=== PATIENT | female | born 1965 | race Caucasian/White ===

== ENCOUNTER 2017-05-29 12:32 | Emergency (ER) | payer OTHER ==
--- NOTE | 2017-05-29 14:36 | ED Physician Chart ---
ED Chief Complaint/HPI - Patient Information Date Seen:: 05/29/17 Time Seen:: 12:45 Chief Complaint:: Headaches History of Present Illness:: onset x 3 days of intermittent, diffuse, dull Headaches radiating to the right orbital, facial, and neck regions; pt denies trauma, LOC, ALOC, AMS, N/V, decreased activity, visual or gait changes, paresthesias, weakness, dizziness, cough, S/T, E/As, eye pain,eye redness, vertigo, neck pain, C/P, SOB, Abd. Pain , A/N/V/D/C, fever, chills, jaw claudication, or urinary s/s; pt is eating and urinating well; pt last urinated one hour [facility]; LNMP: 05/26/17; pt denies Allergies:: Allergies Allergy/AdvReac Type Severity Reaction Status Date / Time No Known Allergies Allergy Verified 05/29/17 12:45 Vitals:: Vital Signs - 8 hr 05/29/17 12:46 Temp 98 F HR 72 RR 16 BP 121/66 O2 Sat % 100 Historian:: Patient Review:: Nurse's Note Reviewed ED Review of Systems - Review of Systems General/Constitutional: No fever, No chills, No weight loss, No weakness, No diaphoresis, No edema, No loss of appetite Skin: No skin lesions, No rash, No bruising Head: Headache, No light-headedness Eyes: No loss of vision, No pain, No diplopia ENT: No earache, No nasal drainage, No sore throat, No tinnitus Neck: No neck pain, No swelling, No thyromegaly, No stiffness, No mass noted Cardio Vascular: No chest pain, No palpitations, No PND, No orthopnea, No edema Pulmonary: No SOB, No cough, No sputum, No wheezing GI: No nausea, No vomiting, No diarrhea, No pain, No melena, No hematochezia, No constipation, No hematemesis G/U: No dysuria, No frequency, No hematuria, No nacturia Front Office Administrator: No vaginal discharge, No abnormal vaginal bleed, No contraction Musculoskeletal: No bone or joint pain, No back pain, No muscle pain Endocrine: No polyuria, No polydipsia Psychiatric: No prior psych history, No depression, No anxiety, No suicidal ideation, No homicidal ideation, No auditory hallucination, No visual hallucination Hematopoietic: No bruising, No lymphadenopathy Allergic/Immuno: No urticaria, No angioedema Neurological: No syncope, No focal symptoms, No weakness, No paresthesia, No headache, No seizure, No dizziness, No confusion, No vertigo ED Past Medical History - Past Medical History Obtainable: Yes Past Medical History: No significant medical hx Family History: HTN Social History: Non Smoker, No Alcohol, No Drug Use, Surgical History: None Psychiatricy History: None Medication: Reviewed ED Physical Exam - Physical Examination General/Constitutional: Awake, Well-developed, well-nourished, Alert, No distress, GCS 15, Non-toxic appearing, Ambulatory Head: Atraumatic Eyes: Lids, conjuctiva normal, PERRL, EOMI Other Eyes comments:: Va: 20/20 OU; PERRLA; Fundi: benign; EOMs: WNL; LLL: WNL; Eye Exam: WNL; Corneas /Conjunctiva: WNL; no FBs Skin: Nl inspection, No rash, No skin lesions, No ecchymosis, Well hydrated, No lymphadenopathy ENMT: External ears, nose nl, TM canals nl, Nasal exam nl, Lips, teeth, gums nl , Oropharynx nl, Tonsils nl Other ENMT comments:: TMJs: WNL Neck: Nontender, Full ROM w/o pain, No JVD, No nuchal rigidity, No bruit, No mass, No stridor Other Neck comments:: Supple; no meningeal signs; no cervical tenderness; no bruits Respiratory: Nl effort/Exclusion, Clear to Auscultation, No Wheeze/Rhonchi/Rales Cardio Vascular: RRR, No murmur, gallop, rubs, NL S1 S2, Carotid/Femoral/Distal pulses equal bilaterally GI: No tenderness/rebounding/guarding, No organomegaly, No hernia, Normal BS's, Nondistended, No mass/bruits, No McBurney tenderness Other GI comments:: no pulsatile masses : No CVA tenderness Extremities: No tenderness or effusion, Full ROM, normal strength in all extremities, No edema, Normal digits & nails Neuro/Psych: Alert/oriented, DTR's symmetric, Normal sensory exam, Normal motor strength, Judgement/insight normal, Mood normal, Normal gait, No focal deficits Misc: Normal back, No paraspinal tenderness ED Labs/Radiology/EKG Results - Lab Results Results: Laboratory Tests 05/29/17 13:10 Urine Test NEGATIVE Comments:: UCG: Negative - Radiology Results Comments:: DJD Changes; NAD ED Septic Shock - . Is Septic Shock (SBP<90, OR Lactate>4 mmol\L) present?: No - <6hrs of presentation: Vital Signs: Vital Signs - 8 hr 05/29/17 12:46 Temp 98 F HR 72 RR 16 BP 121/66 O2 Sat % 100 ED Reassessment (Disposition) - Reassessment Reassessment:: pt is aymptomatic upon discharge Reassessment Condition:: Improved - Diagnosis Diagnosis:: Osteoarthritis; Headaches; Ocular Cephalgia; TMJ Syndrome; Cervical Strain; Radiculopathy; Vascular Cephalgia - Aftercare/Follow up Instructions Aftercare/Follow-Up Instructions:: Counseled pt regarding lab results/diagnosis & need follow up, Refer to Discharge Instructions, Counseled pt & family regarding lab results/diagnosis & need follow up - Patient Disposition Discharge/Transfer:: Home Condition at Disposition:: Stable, Improved (RTER prn if existing s/s reoccur and/or get worse and/or any other new s/s occur; X-Rays Instructions; ACIs given for all above Dx; Refer to Neurologist/Documentum Consultant/Catshovel Driver/ENT Specialist ALINA; F/U with PMD in one day or prn; RTER prn if concerned)
--- NOTE | 2017-05-30 08:27 | Diagnostic Imaging Report ---
Exam: CT examination of facial bones HISTORY: Facial pain. Total DLP equals 523 CTDI equals 24.6 Findings: Multiple contiguous thin section of facial bones were obtained without administration of contrast which he of. The study was performed in axial plane with coronal sagittal reconstruction technique. The study demonstrates no evidence of fracture dislocation. The visualized paranasal sinuses are well aerated. The orbits and intraconal content is intact. The zygomatic arches are normal. The maxillary mandible intact. IMPRESSION: Normal examination of the facial bones.
--- NOTE | 2017-05-30 08:28 | Diagnostic Imaging Report ---
CT scan of the brain without contrast History: Headache Total DLP equals 452 CTDI equals 19.4 Axial sections were obtained from the base of the skull to the vertex. There is a normal ventricular system size. No focal parenchymal lesions are seen. No evidence of any mass effect or shift of midline structures. No extra-axial masses or abnormal fluid collections. Impression: Negative examination.
--- NOTE | 2017-05-30 08:31 | Diagnostic Imaging Report ---
CT scan cervical spine History: Pain. Total DLP equals 452 CTDI equals 19.4 Axial sections were obtained through the cervical spine region. Additional sagittal and coronal reformatted images are provided. No focal bony lesions are seen. Specifically, no fractures are identified. There is limited visualization of the margins of the cervical spinal cord. No obvious extradural soft tissue abnormalities are seen. The prevertebral soft tissues appear normal. Mild degenerative changes of the C4, C5-C6 and C7 appreciated. Mild osteophytic spurring is noted in the C 6 C7 vertebral bodies anteriorly. If clinically indicated MRI examination might be helpful Impression: No acute abnormalities Mild degenerative changes.
== END 2017-05-29 16:03 | disposition home or self-care (01) ==
LOC: ER 12:32
DX: G44.1 Vascular headache, not elsewhere classified (principal); M26.609 Unspecified temporomandibular joint disorder, unspecified side; S16.1XXA Strain of muscle, fascia and tendon at neck level, initial encounter; M54.16 Radiculopathy, lumbar region; M17.9 Osteoarthritis of knee, unspecified; X58.XXXA Exposure to other specified factors, initial encounter; Y93.89 Activity, other specified; Y92.89 Other specified places as the place of occurrence of the external cause; Y99.8 Other external cause status
CPT/HCPCS: 70450-TC; 70486-TC; 72125-TC; 81025-TC